=== PATIENT | female | born 1950 | race Caucasian/White ===

== ENCOUNTER 2023-10-07 09:22 | Day surgery (SDC) | payer MEDICARE, BC ==
[~2023-10-07] VITALS: Ht 157.5 cm; Wt 77.2 kg
[~2023-10-07 09:22] MED LIST: AMIT10TA6 PO; LEVO75TA7 PO; LISI1TAB49 PO; OMEP20CA16 PO; ROSU20TA73 PO; VENL75CA61 PO
[2023-10-07 09:56] VITALS: BP 141/74; PULSE 73; RESP 16
[2023-10-07] MEDS ORDERED: fentaNYL/PF 50MCG/1 ML 2ML syringe ONE (10:25)
[2023-10-07] MEDS ORDERED: midazolam 1 mg/ML 2ml injection ONE (10:26)
[2023-10-07] MEDS ORDERED: propofol 10mg/ml 20ml vial IV ONE (10:31)
[2023-10-07 10:40] VITALS: BP 118/59; PULSE 69; RESP 18; O2SAT 95
[2023-10-07 10:50] VITALS: BP 104/49; PULSE 70; RESP 16; O2SAT 98
[2023-10-07 11:00] VITALS: BP 115/72; PULSE 71; RESP 16; O2SAT 97
[2023-10-07 11:10] VITALS: BP 112/70; PULSE 70; RESP 17; O2SAT 98
== END 2023-10-07 11:30 | disposition home or self-care (01) ==
LOC: GI LAB 09:22
PROVIDERS: ATTEND Internal Medicine Gastroenterology
DX: K30 Functional dyspepsia (principal); K29.50 Unspecified chronic gastritis without bleeding; I10 Essential (primary) hypertension
CPT/HCPCS: 43239; A4620; J2250; J2704; J3010; J7030; Z7512

== ENCOUNTER 2024-08-05 09:34 | Outpatient (CLI) | payer MEDICARE, BC ==
[~2024-08-05 09:34] MED LIST changes: -ROSU20TA73 PO; +ROSU20TA98 PO; +iohexol 300mg/ml 100ml inj. ONE
[2024-08-05 10:48] LABS: ALBUMIN 3.8 G/DL (3.4-5.0); ANION GAP 4 (8-16); BLOOD UREA NITROGEN 14 MG/DL (7-18); BUN/CREATININE RATIO 15.1 (10.0-20.0); CALCIUM 8.9 MG/DL (8.5-10.1); CHLORIDE 106 MMOL/L (99-107); CREATININE 0.93 MG/DL (0.40-0.90); GLUCOSE 99 MG/DL (70-104); POTASSIUM 4.2 MMOL/L (3.5-5.1); SODIUM 141 MMOL/L (135-145); TOTAL CARBON DIOXIDE 31.4 MMOL/L (24-32); eGFR 59 ML/MIN
--- NOTE | 2024-08-05 13:48 | RADIOLOGY REPORT ---
Exam: CT CT ABDOMEN PELVIS W/WO IV CONTRAST History: HEPATIC CYST Comparison Study: None Technique: Multidetector spiral CT of the abdomen and pelvis was performed from lung bases to pubic s ymphysis. Initial imaging was done without IV contrast, followed by post contrast images of the abdom en and pelvis. Intravenous contrast was administered during this examination. Multiphase liver mass p rotocol imaging was obtained. Axial, coronal and sagittal multiplanar reformats were performed by the technologist on a separate workstation. Radiation Dose : CT Dose: CTDI volume is 8.5 mGy. Dose-length product is 1035 mGy*cm Findings: Lung Bases: No acute or significant lung base finding. Normal heart size. No pleural or pericardial effusion. Liver: The liver is normal in size. No focal lesions. Normal hepatic vascular enhancement. Few bilob ar hepatic cysts are present. For example, left hepatic dome cyst measures 1.2 cm. No suspicious hep atic lesion. Gallbladder and Biliary Tree: Unremarkable Spleen: Unremarkable Pancreas: The pancreas is normal in appearance without focal lesions or abnormal enhancement. Adrenal Glands: Unremarkable Kidneys: Kidneys demonstrate normal symmetric enhancement without focal lesions, calculi or hydroneph rosis. Bladder: Unremarkable Bowel: The stomach is grossly normal in appearance. Diverticulosis. Moderate colonic stool. The appe ndix is not visualized; however, no secondary findings of acute appendicitis identified. Ascites: Absent Lymphadenopathy: No mesenteric, retroperitoneal or periportal lymphadenopathy. Abdominal Wall and Mesentery: Unremarkable. Vasculature: The visualized abdominal aorta is normal in size and caliber. Abdominal and pelvic vess els demonstrate normal enhancement. Pelvic Organs: Unremarkable Musculoskeletal: No aggressive focal bony lesions, acute fractures or dislocation. Degenerative bryant es of the spine. IMPRESSION: No acute abdominal or pelvic finding. No suspicious hepatic lesion.
== END 2024-08-05 23:59 | disposition home or self-care (01) ==
LOC: RAD 09:34
DX: K76.89 Other specified diseases of liver (principal)
CPT/HCPCS: 36415; 74178; 80048; Q9967